=== PATIENT | female | born 1990 | race Caucasian/White ===

== ENCOUNTER 2017-10-22 13:46 | Emergency (ER) | payer SELFPAY ==
[~2017-10-22] VITALS: Ht 165.1 cm; Wt 54.1 kg
[~2017-10-22 13:46] MED LIST: HYDR-755 PO; IBUP600 PO; OXYC1SOL5 PO; PRED-1 PO; PREN0.01 PO; RANI150 PO; TUCKSPAD TOP
[2017-10-22 13:53] VITALS: BP 129/77; PULSE 107; RESP 16; TEMP 98.1; O2SAT 98
[2017-10-22] MEDS ORDERED: [UNRECOGNIZED DRUG - OTHER] (14:12)
[2017-10-22] MEDS ORDERED: PHEN0.4T PO ×2 (14:12→14:46)
[2017-10-22] MEDS ORDERED: AZO OTC (14:12)
[2017-10-22 14:30] LABS: GLUCOSE,URINE 500 mg/dL (NEG); KETONE, URINE 40 mg/dL (NEG); NITRITE,URINE POS (NEG); URINE LEUKOCYTE ESTERASE LARGE (NEG)
[2017-10-22 14:34] LABS: BILIRUBIN, URINE NEG (NEG); BLOOD, URINE TRACE (NEG)
[2017-10-22 14:36] LABS: URINE COLOR DARK-ORANGE (YELLW/STRAW)
[2017-10-22 14:37] LABS: MUCUS URINE MOD /lpf (OCC); SQUAMOUS EPITHELIAL CELL URINE 0-5 /hpf (0-5)
[2017-10-22 14:40] LABS: BACTERIA, URINE MANY /hpf; RENAL EPITHELIAL CELLS 0-5 /hpf
[2017-10-22] MEDS ORDERED: BENZ100 PO (14:46)
[2017-10-22] MEDS ORDERED: MACR100C2 PO (14:46)
--- NOTE | 2017-10-22 14:50 | PD ---
HPI Chief Complaint: Cold / Flu Symptoms Time Seen by Provider: 14:42 Travel History International Travel<30 days: No Contact w/Intl Traveler<30days: No Traveled to known affect area: No History of Present Illness HPI 26-year-old female to history of asthma presents for evaluation. For one week she has had cough, congestion. The cough is worse tonight, productive with green sputum, unrelieved [id number] cough and cold medications. She is also had 5 days of dysuria and increased urinary frequency. Burning sensation, constant, worse when urinating. Endorses suprapubic discomfort as well. Denies fevers or chills. No sick contacts. No other complaints at this time. PFSH Past Medical History Asthma: Yes (as child) Blood Disorders: No Cancer: No Diabetes: No Diminished Hearing: No Musculoskeletal: Yes (osteoma L4) Psychiatric: No Respiratory: Yes (ASTHMA) Seizures: No Thyroid Disease: No Ulcer: No ?: Not : 1 Para: 0 Past Surgical History Neurologic Surgery: Yes (L4 OSTEOMA EXCISION 2003) Other Surgery: Yes (back surgery- tumor removal 2002 (L4)) Social History Alcohol Use: No Tobacco Use: No Substance Use: No Allergies-Medications (Allergen,Severity, Reaction): Coded Allergies: morphine (Verified Allergy, Severe, Itching, 10/22/17) latex (Unverified Allergy, Mild, Itching, 10/22/17) Reported Meds & Prescriptions Reported Meds & Active Scripts Active Tessalon Perles (Benzonatate) 100 Mg Cap 200 Mg PO TID PRN Pyridium (Phenazopyridine HCl) 100 Mg Tab 100 Mg PO Q8HR Macrobid (Nitrofurantoin Monohydrate Macrocrystals) 100 Mg Capsule 100 Mg PO BID 7 Days Reported [Azo Otc] [Respiratory QRZ] Pyridium (Phenazopyridine HCl) 100 Mg Tab 100 Mg PO Q8H PRN Review of Systems Except as stated in HPI: all other systems reviewed are Neg Physical Exam Narrative GENERAL: Well-nourished female in no acute distress SKIN: Warm and dry. HEAD: Atraumatic. Normocephalic. EYES: Pupils equal and round. No scleral icterus. No injection or drainage. ENT: No nasal bleeding or discharge. Mucous membranes pink and moist. NECK: Trachea midline. No JVD. CARDIOVASCULAR: Regular rate and rhythm. No murmur appreciated. RESPIRATORY: No accessory muscle use. Clear to auscultation. Breath sounds equal bilaterally. No crackles no wheezing or rhonchi GASTROINTESTINAL: Abdomen soft, non-tender, nondistended. Hepatic and splenic margins not palpable. MUSCULOSKELETAL: No obvious deformities. No clubbing. No cyanosis. No edema. NEUROLOGICAL: Awake and alert. No obvious cranial nerve deficits. Motor grossly within normal limits. Normal speech. PSYCHIATRIC: Appropriate mood and affect; insight and judgment normal. Data Data Last Documented VS Vital Signs Date Time Temp Pulse Resp B/P (MAP) Pulse Ox O2 Delivery O2 Flow Rate FiO2 10/22/17 13:53 98.1 107 16 129/77 (94) 98 Orders Orders Urinalysis - C+S If Indicated (10/22/17 13:56) Ed Urine Pregnancytest Poc (10/22/17 14:25) Urine Culture (10/22/17 14:22) Ed Discharge Order (10/22/17 14:47) Labs Laboratory Tests Test 10/22/17 14:22 Urine Collection Type CLEAN CATCH Urine Color DARK-ORANGE Urine Turbidity CLEAR Urine pH 7.0 Urine Specific [place] 1.030 Urine Protein 300 OR GREATER mg/dL Urine Glucose (UA) 500 mg/dL Urine Ketones 40 mg/dL Urine Occult Blood TRACE Urine Nitrite POS Urine Bilirubin NEG Urine Leukocyte Esterase LARGE Urine WBC 9-14 /hpf Urine Squamous Epithelial Cells 0-5 /hpf Urine Renal Epithelial Cells 0-5 /hpf Urine Bacteria MANY /hpf Urine Mucus MOD /lpf Microscopic Urinalysis Comment CULTURE INDICATED MDM Medical Decision Making Medical Screen Exam Complete: Yes Emergency Medical Condition: Yes Medical Record Reviewed: Yes Differential Diagnosis Cystitis, pyelonephritis, urethritis, cervicitis Bronchitis, asthma exacerbation, pneumonia, influenza Narrative Course 26-year-old female with 1 week of cough and congestion, 5 days of dysuria. Lungs are clear to auscultation. ENT examination is normal. Urinalysis reveals positive nitrites, large leukocytes, many bacteria, 500 glucose, 40 ketones, 300 protein, culture pending. Symptoms and history are consistent with cystitis. She is stable for discharge. Diagnosis Primary Impression: Urinary tract infection Additional Impression: Bronchitis Additional Instructions: Medication as prescribed. Stay well hydrated well-nourished. Follow-up with primary care physician as needed. Return for any emergent medical conditions. Med/Other Pt SpecificInfo: Prescription(s) given Scripts Benzonatate (Tessalon Perles) 100 Mg Cap 200 MG PO TID Y for COUGH, #30 CAP 0 Refills Prov: Mckenzie Simental MD 10/22/17 Phenazopyridine (Pyridium) 100 Mg Tab 100 MG PO Q8HR for Dysuria, #6 TAB 0 Refills Prov: Mckenzie Simental MD 10/22/17 Nitrofurantoin Monohydrate Macrocrystals (Macrobid) 100 Mg Capsule 100 MG PO BID for Infection for 7 Days, #14 CAP 0 Refills Prov: Mckenzie Simnetal MD 10/22/17 Disposition: 01 DISCHARGE HOME Condition: Stable Karl Gan Oct 22, 2017 14:50
== END 2017-10-22 15:12 | disposition home or self-care (01) ==
LOC: PHEFT 13:46
DX: N39.0 Urinary tract infection, site not specified (principal); J45.909 Unspecified asthma, uncomplicated; R82.99 Other abnormal findings in urine
CPT/HCPCS: 81001; 84703; 87086; 99284